=== PATIENT | male | born 1945 | race Two or more races ===

== ENCOUNTER 2023-08-07 06:10 | Day surgery (SDC) | payer OTHER | END 2023-08-07 10:40 | disposition home or self-care (01) | LOC: AMB-ENDOS 06:10 | PROVIDERS: ATTEND Surgery | DX: D12.3 Benign neoplasm of transverse colon (principal); K63.89 Other specified diseases of intestine; K92.1 Melena; Z20.822 Contact with and (suspected) exposure to COVID-19 ==

== ENCOUNTER 2023-12-10 09:30 | Inpatient (IN) | payer OTHER ==
[~2023-12-10] VITALS: Ht 162.6 cm; Wt 283.5 kg
[2023-12-10] MEDS ORDERED: HORIZANT600 MG (11:35)
[2023-12-10] MEDS ORDERED: LIPITOR40 M1 PO (11:35)
[2023-12-10] MEDS ORDERED: ZESTRIL20 MG PO (11:35)
[2023-12-10] MEDS ORDERED: AMLODIPINE-OLM1 EAC2 PO (11:35)
[2023-12-10] MEDS ORDERED: CHILDREN'S ASPI81 MG PO (11:36)
[2023-12-10] MEDS ORDERED: LATANOPROST2.5 ML OP (11:36)
[2023-12-18] MEDS ORDERED: LIDOCAINE HCL/EPINEPHRINE 10MG/ML 1% 50ML IJ ONE ×2 (07:04→08:30)
[2023-12-18] MEDS ORDERED: BUPIVACAINE HCL/PF 0.5% 30ML ML ONE (07:04)
[2023-12-18] MEDS ORDERED: CEFTRIAXONE SODIUM 2,000 MG VIAL ONE (07:13)
[2023-12-18] MEDS ORDERED: METRONIDAZOLE/SODIUM CHLORIDE 500 MG/100 ML PIGGYBACK IV ONE (07:13)
[2023-12-18] MEDS ORDERED: TRAZODONE HCL50 MG (08:06)
[2023-12-18] MEDS ORDERED: GABAPENTIN600 MG (08:06)
[2023-12-18] MEDS ORDERED: ALPRAZOLAM2 MG (08:06)
[2023-12-18] MEDS ORDERED: OMEPRAZOLE20 MG (08:07)
[2023-12-18] MEDS ORDERED: AMLODIPINE BESYL5 MG (08:07)
[2023-12-18] MEDS ORDERED: METRONIDAZOLE/SODIUM CHLORIDE 500 MG/100 ML PIGGYBACK IV SCH (08:30)
[2023-12-18] MEDS ORDERED: BUPIVACAINE HCL 30 ML VIAL IJ ONE (08:30)
[2023-12-18] MEDS ORDERED: CEFTRIAXONE SODIUM 2,000 MG VIAL IV SCH (08:30)
[2023-12-18] MEDS ORDERED: ONDANSETRON HCL 2 MG/ML VIAL IV PRN (11:15)
[2023-12-18] MEDS ORDERED: OxyCODONE HCL 5 MG TABLET (ROXICODONE) PO PRN (11:15)
[2023-12-18] MEDS ORDERED: MORPHINE SULFATE 4 MG/ML VIAL IV PRN (11:15)
[2023-12-18] MEDS ORDERED: RINGERS SOLUTION,LACTATED 1,000 ML IV SCH (11:15)
[2023-12-18] MEDS ORDERED: INSULIN LISPRO 1,000 UNIT/10 ML UNITS SUBCUTANEO PRN (11:15)
[2023-12-18] MEDS ORDERED: DEXTROSE 50 % IN WATER 0.5 G/ML DISP.SYRIN IV PRN (11:15)
[2023-12-18 12:10] LABS: HEMOGLOBIN 12.1 g/dL (13-16.00); MEAN CELL VOLUME 90.1 fL (80.0-100.00); MEAN CORPUSCULAR HEMOGLOBIN 30.3 pg (27.00-32.0); MEAN CORPUSCULAR HGB CONC 33.7 g/dl (32.0-36.0); PLATELET COUNT 161 K/uL (150-450); RED BLOOD COUNT 3.99 M/uL (4.00-6.00); RED CELL DISTRIBUTION WIDTH 13.3 % (11.5-14.5)
[2023-12-18 12:39] LABS: ALBUMIN 3.2 gm/dL (3.4-5.0); CALCIUM 8.2 mg/dL (8.5-10.1); CREATININE SERUM 0.82 mg/dL (0.70-1.30); GFR 90.86; MAGNESIUM 1.8 mg/dL (1.8-2.4); PHOSPHOROUS 3.9 mg/dL (2.5-4.9); POTASSIUM 3.92 mEq/L (3.5-5.1)
[2023-12-18] MEDS ORDERED: HYOSCYAMINE SULFATE 0.125 MG TAB.SUBL SL SCH (13:00)
[2023-12-18] MEDS ORDERED: ACETAMINOPHEN 500 MG GEL..CAP PO SCH (14:00)
[2023-12-18] MEDS ORDERED: POLYETHYLENE GLYCOL 3350 17 GM BLIST.PACK PO SCH (17:00)
[2023-12-18] MEDS ORDERED: GABAPENTIN 300 MG CAPSULE PO SCH (17:00)
[2023-12-18] MEDS ORDERED: CELECOXIB 200 MG CAPSULE PO SCH (21:00)
[2023-12-18] MEDS ORDERED: FAMOTIDINE/PF 20 MG/2 ML VIAL IV PUSH SCH (21:00)
[2023-12-19 05:21] LABS: HEMATOCRIT 33.5 % (39.0-48.0); HEMOGLOBIN 11.3 g/dL (13-16.00); MEAN CELL VOLUME 91.7 fL (80.0-100.00); MEAN CORPUSCULAR HEMOGLOBIN 30.8 pg (27.00-32.0); MEAN CORPUSCULAR HGB CONC 33.6 g/dl (32.0-36.0); PLATELET COUNT 136 K/uL (150-450); RED BLOOD COUNT 3.66 M/uL (4.00-6.00); RED CELL DISTRIBUTION WIDTH 13.4 % (11.5-14.5)
[2023-12-19 05:39] LABS: ALBUMIN 2.7 gm/dL (3.4-5.0); CALCIUM 7.9 mg/dL (8.5-10.1); CREATININE SERUM 0.72 mg/dL (0.70-1.30); GFR 105.58; MAGNESIUM 1.5 mg/dL (1.8-2.4); PHOSPHOROUS 2.9 mg/dL (2.5-4.9); POTASSIUM 3.67 mEq/L (3.5-5.1)
[2023-12-19] MEDS ORDERED: AMLODIPINE BESYLATE 5 MG TABLET PO SCH (09:00)
[2023-12-19] MEDS ORDERED: LISINOPRIL 20 MG TABLET PO SCH (09:00)
[2023-12-19] MEDS ORDERED: MAGNESIUM SULFATE IN WATER 4 GM/100 ML PIGGYBACK IV ONE (14:15)
[2023-12-19] MEDS ORDERED: ENOXAPARIN SODIUM 40 MG/0.4 ML SYRINGE SUBCUTANEO SCH (17:00)
[2023-12-20] MEDS ORDERED: ENOXAPARIN SODIUM 40 MG/0.4 ML SYRINGE SUBCUTANEO SCH (09:00)
[2023-12-21] MEDS ORDERED: LEVSIN0.125 MG PO (15:53)
[2023-12-21] MEDS ORDERED: ACETAMINOPHEN500 M2 PO (15:53)
== END 2023-12-21 17:06 | disposition home or self-care (01) | DRG 330 ==
LOC: O/R 12-18 06:19 → SURH 12-18 09:30 → SURG 12-18 11:10
PROVIDERS: ADMIT Surgery; ATTEND Surgery
PROC: 07BB4ZZ Excision of Mesenteric Lymphatic, Percutaneous Endoscopic Approach (ICD-10-PCS; 2023-12-18)
PROC: 0DTF4ZZ Resection of Right Large Intestine, Percutaneous Endoscopic Approach (ICD-10-PCS; principal; 2023-12-18 11:00)
DX: D12.3 Benign neoplasm of transverse colon (principal); K92.1 Melena; R59.0 Localized enlarged lymph nodes